=== PATIENT | female | born 1985 | race Caucasian/White ===

== ENCOUNTER 2017-01-22 14:00 | Emergency (ER) | payer MEDICAID ==
[~2017-01-22] VITALS: Ht 165.1 cm; Wt 94.0 kg
[~2017-01-22 14:00] MED LIST: IBUP-1542 PO; ONDA4TAB14 PO; TRAM50TA2 PO
[2017-01-22 14:03] VITALS: Ht 165.1 cm; Wt 94.0 kg
[2017-01-22] MEDS ORDERED: ONDANSETRON 4 MG INJ IV STA (14:44)
[2017-01-22] MEDS ORDERED: morphine 4 MG/ML VIAL IV STA (14:44)
--- NOTE | 2017-01-22 15:18 | RADRPT ---
PROCEDURE: US Abdomen (right upper quadrant). CLINICAL INDICATION: Right upper quadrant pain TECHNIQUE: Multiple real-time longitudinal and transverse images of the right upper quadrant of th e abdomen were acquired utilizing a curved array transducer. Images were reviewed on a high-resoluti on PACS workstation. COMPARISON: None FINDINGS: The liver is normal in size without focal mass or intrahepatic biliary dilatation. The gallbladder demonstrates numerous gallstones. There is no pericholecystic fluid or gallbladder wall thickening or gallstones. No intra or extrahepatic biliary dilatation is seen. The common bile duct measures 5 mm in maximal dimension. The visualized portions of the pancreas are unremarkable with obscuratio n of the tail of the pancreas. No free fluid is identified. The right kidney measures 11.3 cm in length. There is normal echogenicity within the right kidney. There is no perinephric fluid collection. No hydronephrosis, mass, or calculus is seen. IMPRESSION: 1. Cholelithiasis without evidence of gallbladder wall thickening or pericholecystic fluid to sugge st acute cholecystitis by ultrasound. 2. Otherwise grossly unremarkable abdominal ultrasound. RPTAT: UU .Yovany Jose MD, Date Time Electronically viewed and signed by .Yovany Jose MD, on 01/22/2017 15:18 .K/
[2017-01-22 15:27] LABS: ADD SCAN DIFF NO
[2017-01-22 15:29] LABS: BASOPHILS % 0.4 % (0.0-2.0); EOSINOPHILS # 0.3 10^3/ul (0.0-0.5); EOSINOPHILS % 2.6 % (0.0-7.0); HEMATOCRIT 43.3 % (37.0-47.0); HEMOGLOBIN 14.2 g/dl (12.0-16.0); LYMPHOCYTES # 2.7 10^3/ul (0.8-2.9); LYMPHOCYTES % 26.4 % (15.0-51.0); MEAN CORPUSCULAR HEMOGLOBIN 30.9 pg (29.0-33.0); MEAN CORPUSCULAR HGB CONC 32.8 g/dl (32.0-37.0); MEAN CORPUSCULAR VOLUME 94.1 fl (82.0-101.0); MEAN PLATELET VOLUME 10.2 fl (7.4-10.4); MONOCYTE # 0.8 10^3/ul (0.3-0.9); MONOCYTES % 8.1 % (0.0-11.0); NEUTROPHIL # 6.3 10^3/ul (1.6-7.5); NEUTROPHILS % 62.2 % (39.0-77.0); PLATELET COUNT 304 10^3/UL (140-415); RED CELL DISTRIBUTION WIDTH 12.3 % (11.5-14.5); WHITE BLOOD COUNT 10.2 10^3/ul (4.8-10.8)
[2017-01-22 15:32] LABS: ADD UMIC NO; URINE BILIRUBIN (Dip) NEGATIVE (NEGATIVE); URINE BLOOD (Dip) NEGATIVE (NEGATIVE); URINE COLOR LT. YELLOW (YELLOW); URINE GLUCOSE (Dip) NEGATIVE (NEGATIVE); URINE KETONES (Dip) NEGATIVE (NEGATIVE); URINE LEUKOCYTE ESTERASE (Dip) NEGATIVE (NEGATIVE); URINE NITRITE (Dip) NEGATIVE (NEGATIVE); URINE TOTAL PROTEIN (Dip) NEGATIVE (NEGATIVE); URINE UROBILINOGEN (Dip) 0.2 E.U./dL (0.1-1.0)
[2017-01-22 15:41] LABS: ALBUMIN 4.5 g/dl (3.3-4.9)
[2017-01-22 15:42] LABS: POTASSIUM 3.4 mmol/L (3.5-5.1)
[2017-01-22 15:44] LABS: ALBUMIN/GLOBULIN RATIO 1.32; BILIRUBIN,INDIRECT 0.2 mg/dl (0-1.1); BILIRUBIN,TOTAL 0.2 mg/dl (0.2-1.3); CREATININE 0.75 mg/dl (0.44-1.00); TOTAL PROTEIN 7.9 g/dl (6.1-8.1)
[2017-01-22 15:45] LABS: CALCIUM 9.6 mg/dl (8.4-10.2)
[2017-01-22] MEDS ORDERED: HYDR-906 PO (16:52)
[2017-01-22] MEDS ORDERED: IBUP-1542 PO (16:52)
[2017-01-22] MEDS ORDERED: ONDA8TAB14 PO (16:52)
--- NOTE | 2017-01-22 17:08 | ERD ---
ER Documentation Chief Complaint Date/Time DATE: 01/22/17 TIME: 17:06 Chief Complaint rt upper abd pain x 1 day HPI 31-year-old female presents with right upper quadrant abdominal pain for last day. She has nausea without vomiting and no history of fevers patient has urinary complaints. Patient gives a history of gallstones is on a waiting list for surgery is at another facility. Her last attack of biliary colic was approximately 6 months ago. ROS All systems reviewed and are negative except as per history of present illness. Medications Home Meds Active Scripts Ondansetron (Ondansetron Odt) 8 Mg Tab.rapdis, 8 MG PO Q6H Y for NAUSEA AND/OR VOMITING, #10 TAB Prov:KENNEDY HYDE MD 01/22/17 Ibuprofen* (Ibuprofen*) 600 Mg Tablet, 600 MG PO Q6, #20 TAB Prov:KENNEDY HYDE MD 01/22/17 Hydrocodone/Acetaminophen ([place] 5-325 Tablet) 1 Each Tablet, 1 EACH PO QID, # 16 TAB Prov:KENNEDY HYDE MD 01/22/17 Ibuprofen* (Motrin*) 600 Mg Tab, 600 MG PO Q6H Y for PAIN AND OR ELEVATED TEMP, #30 TAB Prov:MARIS ROBINS NP 11/03/16 Ondansetron (Ondansetron Odt) 4 Mg Tab.rapdis, 4 MG PO Q6H Y for NAUSEA AND/OR VOMITING, #10 TAB Prov:WILDER STEPHENS 09/06/16 Tramadol HCl (Tramadol HCl) 50 Mg Tablet, 50 MG PO Q4 Y for PAIN, #20 TAB Prov:WILDER STEPHENS 09/06/16 Allergies Allergies: Coded Allergies: No Known Allergy (Unverified , 09/06/16) PMhx/Soc History of Surgery: Yes (caesarean section x 1) Anesthesia Reaction: No Hx Neurological Disorder: No Hx Respiratory Disorders: No Hx Cardiac Disorders: No Hx Psychiatric Problems: No Hx Miscellaneous Medical Probl: Yes (gallstones) Hx Alcohol Use: No Hx Substance Use: No Hx Tobacco Use: No Physical Exam Vitals Vital Signs Date Time Temp Pulse Resp B/P Pulse Ox O2 Delivery O2 Flow Rate FiO2 01/22/17 14:03 98.3 88 18 105/66 99 Physical Exam Const: [] Head: Atraumatic Eyes: Normal Conjunctiva ENT: Normal External Ears, Nose and Mouth. Neck: Full range of motion..~ No meningismus. Resp: Clear to auscultation bilaterally Cardio: Regular rate and rhythm, no murmurs Abd: Soft, non tender, non distended. Normal bowel sounds Skin: No petechiae or rashes Back: No midline or flank tenderness Ext: No cyanosis, or edema Neur: Awake and alert Psych: Normal Mood and Affect Result Diagram: 01/22/17 1502 01/22/17 1502 Results 24 hrs Laboratory Tests Test 01/22/17 15:02 Alanine Aminotransferase (ALT/SGPT) 40IU/L Albumin 4.5g/dl Albumin/Globulin Ratio 1.32 Alkaline Phosphatase 91IU/L Anion Gap 16 Aspartate Amino Transf (AST/SGOT) 35IU/L Basophils # 0.010^3/ul Basophils % 0.4% Blood Urea Nitrogen 12mg/dl Calcium Level 9.6mg/dl Carbon Dioxide Level 30mmol/L Chloride Level 103mmol/L Creatinine 0.75mg/dl Direct Bilirubin 0.00mg/dl Eosinophils # 0.310^3/ul Eosinophils % 2.6% Globulin 3.40g/dl Glucose Level 64mg/dl Hematocrit 43.3% Hemoglobin 14.2g/dl Indirect Bilirubin 0.2mg/dl Lipase 61U/L Lymphocytes # 2.710^3/ul Lymphocytes % 26.4% Mean Corpuscular Hemoglobin 30.9pg Mean Corpuscular Hemoglobin Concent 32.8g/dl Mean Corpuscular Volume 94.1fl Mean Platelet Volume 10.2fl Monocytes # 0.810^3/ul Monocytes % 8.1% Neutrophils # 6.310^3/ul Neutrophils % 62.2% Nucleated Red Blood Cells # 0.010^3/ul Nucleated Red Blood Cells % 0.0/100WBC Platelet Count 60327^3/UL Potassium Level 3.4mmol/L Red Blood Count 4.6010^6/ul Red Cell Distribution Width 12.3% Sodium Level 146mmol/L Total Bilirubin 0.2mg/dl Total Protein 7.9g/dl Urine Bilirubin NEGATIVE Urine Clarity CLEAR Urine Color LT. YELLOW Urine Glucose NEGATIVE% Urine Hemoglobin NEGATIVE Urine Ketones NEGATIVE Urine Leukocyte Esterase NEGATIVE Urine Nitrite NEGATIVE Urine Specific [place] 1.015 Urine Total Protein NEGATIVE Urine Urobilinogen 0.2 E.U./dL Urine pH 6.5 White Blood Count 10.210^3/ul Current Medications Medications (Trade) Dose Ordered Sig/Chantal Route PRN Reason Start Time Stop Time Status Last Admin Dose Admin Morphine Sulfate (morphine) 4 mg ONCE STAT IV 01/22/17 14:44 01/22/17 14:45 DC 01/22/17 14:59 Ondansetron HCl (Zofran Inj) 4 mg ONCE STAT IV 01/22/17 14:44 01/22/17 14:45 DC 01/22/17 14:58 Procedures/MDM Patient presents with right upper quadrant abdominal pain in the setting of a history of gallstones. CBC and CMP showed no acute abnormalities. Urine is negative for significant abnormalities and hCG is negative. Lipase is normal Quadrant ultrasound shows gallstones without evidence of cholecystitis or biliary dilatation or obstruction. Patient was given morphine 4 mg IV and Zofran 4 mg IV. Patient felt better and had a benign abdomen on serial exam. Patient signs and symptoms of biliary colic without evidence of infection or obstruction. She will treated with short course of [place], Zofran and ibuprofen at home and instructed to continue follow-up with her primary doctor and surgeon for presumed cholecystectomy. She was advised to return for fevers, vomiting despite treatment, worsening pain, new or worsening symptoms with primary doctor. The patient was stable with no new complaints during the ER course. Clinically, there is no current evidence to suggest meningitis, sepsis, acute abdomen, pneumonia, acute coronary syndrome, pulmonary embolism, or any other emergent condition appearing to require further evaluation or hospitalization. The patient should certainly return for any new or worsening symptoms per the aftercare instructions. They should otherwise follow-up with her primary care doctor for reevaluation this week. Departure Diagnosis: Primary Impression: Biliary colic Condition: Stable Patient Instructions: Gallstones Additional Instructions: dolor es de piedras sin obstruccion o infeccion. Cheque otro vez con sethi doctor primario en el proximo weller or regresa para mas o nueva simptomas. KENNEDY HYDE MD Jan 22, 2017 17:07
== END 2017-01-22 17:07 | disposition left against medical advice (07) ==
LOC: FTE 14:00
DX: K80.50 Calculus of bile duct without cholangitis or cholecystitis without obstruction (principal); R11.0 Nausea
CPT/HCPCS: 36415; 76705; 80053; 81003; 83690; 85025; 96374; 96375; J2270; J2405; Z7502

== ENCOUNTER 2017-03-26 01:42 | Emergency (ER) | payer MEDICAID ==
[~2017-03-26] VITALS: Ht 162.6 cm; Wt 97.3 kg
[~2017-03-26 01:42] MED LIST changes: +HYDR-906 PO; +ONDA8TAB14 PO
[2017-03-26 01:51] VITALS: Ht 162.6 cm; Wt 97.3 kg
[2017-03-26] MEDS ORDERED: FAMOTIDINE 20 MG TAB PO STA (02:05)
--- NOTE | 2017-03-26 02:08 | ERD ---
ER Documentation Chief Complaint Date/Time DATE: 03/26/17 TIME: 02:06 Chief Complaint AP Right upper Quadrant. Hx of Gallstone, seen in ER multi visit HPI Patient is a 31-year-old female with known gallstones who presents with sudden onset, constant, moderate right upper quadrant pain for 4 hours. Pain radiates to the right flank. She denies vomiting, denies fever, denies dysuria or hematuria. She reports taking pain medication was prescribed to her without relief. She reports eating a low-fat diet. She has not yet seen a surgeon for her cholelithiasis. ROS All systems reviewed and are negative except as per history of present illness. Medications Home Meds Active Scripts Ondansetron (Ondansetron Odt) 8 Mg Tab.rapdis, 8 MG PO Q6H Y for NAUSEA AND/OR VOMITING, #10 TAB Prov:KENNEDY HYDE MD 01/22/17 Ibuprofen* (Ibuprofen*) 600 Mg Tablet, 600 MG PO Q6, #20 TAB Prov:KENNEDY HYDE MD 01/22/17 Hydrocodone/Acetaminophen ([place] 5-325 Tablet) 1 Each Tablet, 1 EACH PO QID, # 16 TAB Prov:KENNEDY HYDE MD 01/22/17 Ibuprofen* (Motrin*) 600 Mg Tab, 600 MG PO Q6H Y for PAIN AND OR ELEVATED TEMP, #30 TAB Prov:MARIS ROBINS NP 11/03/16 Ondansetron (Ondansetron Odt) 4 Mg Tab.rapdis, 4 MG PO Q6H Y for NAUSEA AND/OR VOMITING, #10 TAB Prov:WILDER STEPHENS 09/06/16 Tramadol HCl (Tramadol HCl) 50 Mg Tablet, 50 MG PO Q4 Y for PAIN, #20 TAB Prov:WILDER STEPHENS 09/06/16 Allergies Allergies: Coded Allergies: No Known Allergy (Unverified , 09/06/16) PMhx/Soc Past medical history: Cholelithiasis Past surgical history: Social history: Denies tobacco or alcohol Last menstrual period: March 17. History of Surgery: Yes (caesarean section x 1) Anesthesia Reaction: No Hx Neurological Disorder: No Hx Respiratory Disorders: No Hx Cardiac Disorders: No Hx Psychiatric Problems: No Hx Miscellaneous Medical Probl: Yes (gallstones) Hx Alcohol Use: No Hx Substance Use: No Hx Tobacco Use: No FmHx Family History: No coronary disease, No diabetes Physical Exam Vitals Vital Signs Date Time Temp Pulse Resp B/P Pulse Ox O2 Delivery O2 Flow Rate FiO2 03/26/17 01:51 97.3 87 20 121/71 96 Physical Exam Const: Alert, no acute distress Head: Atraumatic Eyes: Normal Conjunctiva, no pallor, no icterus ENT: Normal External Ears, Nose and Mouth. Neck: Full range of motion..~ No meningismus. Resp: Clear to auscultation bilaterally Cardio: Regular rate and rhythm, no murmurs Abd: Soft, mild tenderness in bilateral upper quadrants and epigastrium, no guarding, no rebound non distended. Normal bowel sounds Skin: No petechiae or rashes Back: No midline or flank tenderness Ext: No cyanosis, or edema Neur: Awake and alert, cranial nerves II through XII intact bilaterally, moves and feels 4 extremities appropriately Psych: Normal Mood and Affect Result Diagram: 03/26/17 02103/26/17 021 Results 24 hrs Laboratory Tests Test 03/26/17 02:10 White Blood Count 11.110^3/ul Red Blood Count 4.3610^6/ul Hemoglobin 13.6g/dl Hematocrit 39.9% Mean Corpuscular Volume 91.5fl Mean Corpuscular Hemoglobin 31.2pg Mean Corpuscular Hemoglobin Concent 34.1g/dl Red Cell Distribution Width 12.0% Platelet Count 02009^3/UL Mean Platelet Volume 10.4fl Neutrophils % 55.3% Lymphocytes % 34.2% Monocytes % 7.5% Eosinophils % 2.3% Basophils % 0.4% Nucleated Red Blood Cells % 0.0/100WBC Neutrophils # 6.110^3/ul Lymphocytes # 3.810^3/ul Monocytes # 0.810^3/ul Eosinophils # 0.310^3/ul Basophils # 0.010^3/ul Nucleated Red Blood Cells # 0.010^3/ul Urine Color LT. YELLOW Urine Clarity CLEAR Urine pH 6.0 Urine Specific [place] 1.025 Urine Ketones NEGATIVE Urine Nitrite NEGATIVE Urine Bilirubin NEGATIVE Urine Urobilinogen 0.2 E.U./dL Urine Leukocyte Esterase NEGATIVE Urine Hemoglobin NEGATIVE Urine Glucose NEGATIVE% Urine Total Protein NEGATIVE Sodium Level 142mmol/L Potassium Level 3.7mmol/L Chloride Level 103mmol/L Carbon Dioxide Level 25mmol/L Anion Gap 18 Blood Urea Nitrogen 18mg/dl Creatinine 0.87mg/dl Glucose Level 113mg/dl Calcium Level 9.5mg/dl Total Bilirubin 0.2mg/dl Direct Bilirubin 0.00mg/dl Indirect Bilirubin 0.2mg/dl Aspartate Amino Transf (AST/SGOT) 23IU/L Alanine Aminotransferase (ALT/SGPT) 36IU/L Alkaline Phosphatase 97IU/L Total Protein 8.0g/dl Albumin 4.4g/dl Globulin 3.60g/dl Albumin/Globulin Ratio 1.22 Lipase 88U/L Serum HCG, Qualitative NEGATIVE Current Medications Medications (Trade) Dose Ordered Sig/Chantal Route PRN Reason Start Time Stop Time Status Last Admin Dose Admin Famotidine (Pepcid) 20 mg ONCE STAT PO 03/26/17 02:05 03/26/17 02:07 DC 03/26/17 02:19 Tramadol HCl (Ultram) 50 mg ONCE ONCE PO 03/26/17 02:30 03/26/17 02:31 DC 03/26/17 02:19 Procedures/MDM MDM: Patient is a 31-year-old female who presents with right upper quadrant epigastric pain. She has history of recurrent pain due to cholelithiasis. The patient states that she has been seen her PMD for the last year for the symptoms , and that they have typically occurs 3 times per month. The patient states that her primary doctors refused to refer her to a surgeon. There is currently no evidence of cholecystitis or choledocholithiasis. Labs are unremarkable. Patient is not vomiting. Patient states that her pain is somewhat improved on reevaluation. I will discharge her home with return precautions, and advised her to request a surgical referral as she needs to have nonemergent cholecystectomy for her recurrent symptoms. Departure Diagnosis: Primary Impression: Cholelithiasis Cholelithiasis location: gallbladder Cholecystitis presence: without cholecystitis Biliary obstruction: without biliary obstruction Qualified Code : K80.20 - Calculus of gallbladder without cholecystitis without obstruction Additional Impression: Biliary colic Condition: Stable WALESKA UGALDE MD March 26, 2017 02:08
[2017-03-26 02:21] LABS: ADD SCAN DIFF NO
[2017-03-26 02:22] LABS: BASOPHILS % 0.4 % (0.0-2.0); EOSINOPHILS # 0.3 10^3/ul (0.0-0.5); EOSINOPHILS % 2.3 % (0.0-7.0); HEMATOCRIT 39.9 % (37.0-47.0); HEMOGLOBIN 13.6 g/dl (12.0-16.0); LYMPHOCYTES # 3.8 10^3/ul (0.8-2.9); LYMPHOCYTES % 34.2 % (15.0-51.0); MEAN CORPUSCULAR HEMOGLOBIN 31.2 pg (29.0-33.0); MEAN CORPUSCULAR HGB CONC 34.1 g/dl (32.0-37.0); MEAN CORPUSCULAR VOLUME 91.5 fl (82.0-101.0); MEAN PLATELET VOLUME 10.4 fl (7.4-10.4); MONOCYTE # 0.8 10^3/ul (0.3-0.9); MONOCYTES % 7.5 % (0.0-11.0); NEUTROPHIL # 6.1 10^3/ul (1.6-7.5); NEUTROPHILS % 55.3 % (39.0-77.0); PLATELET COUNT 282 10^3/UL (140-415); RED BLOOD COUNT 4.36 10^6/ul (4.20-5.40); WHITE BLOOD COUNT 11.1 10^3/ul (4.8-10.8)
[2017-03-26 02:26] LABS: ADD UMIC NO; URINE BILIRUBIN (Dip) NEGATIVE (NEGATIVE); URINE BLOOD (Dip) NEGATIVE (NEGATIVE); URINE COLOR LT. YELLOW (YELLOW); URINE GLUCOSE (Dip) NEGATIVE (NEGATIVE); URINE KETONES (Dip) NEGATIVE (NEGATIVE); URINE LEUKOCYTE ESTERASE (Dip) NEGATIVE (NEGATIVE); URINE NITRITE (Dip) NEGATIVE (NEGATIVE); URINE TOTAL PROTEIN (Dip) NEGATIVE (NEGATIVE); URINE UROBILINOGEN (Dip) 0.2 E.U./dL (0.1-1.0)
[2017-03-26] MEDS ORDERED: traMADol 50 MG TAB PO ONE (02:30)
[2017-03-26 02:43] LABS: ALBUMIN 4.4 g/dl (3.3-4.9); POTASSIUM 3.7 mmol/L (3.5-5.1)
[2017-03-26 02:45] LABS: BILIRUBIN,INDIRECT 0.2 mg/dl (0-1.1); BILIRUBIN,TOTAL 0.2 mg/dl (0.2-1.3); CREATININE 0.87 mg/dl (0.44-1.00)
[2017-03-26 02:46] LABS: ALBUMIN/GLOBULIN RATIO 1.22; CALCIUM 9.5 mg/dl (8.4-10.2)
--- NOTE | 2017-03-26 03:41 | RADRPT ---
PROCEDURE: ULTRASOUND LIMITED ABDOMEN CLINICAL INDICATION: 31-year-old female with abdominal pain. TECHNIQUE: Multiple sonographic of the right upper quadrant of the abdomen were obtained. The imag es were reviewed on a PACS workstation. COMPARISON: Right upper quadrant ultrasound January 22, 2017. FINDINGS: The pancreas is well visualized secondary to overlying bowel gas. The liver displays normal echogenicity. The liver measures 16.8 cm in length. No evidence of intrah epatic biliary ductal dilatation is seen. The portal and hepatic veins are unremarkable. The gallbladder is distended with multiple mobile shadowing stones. The gallbladder wall thickness is within normal limits measuring 1.5 mm. No pericholecystic fluid is seen. The common bile duct dionte sures 2.7 mm and is not dilated. The right kidney displays normal echogenicity. The right kidney measures 11.1 cm in maximal length. No caliectasis or hydronephrosis is seen. No free fluid is seen. IMPRESSION: Cholelithiasis. .Eriberto Macedo MD, MD Date Time Electronically viewed and signed by .Eriberto Macedo MD, on 03/26/2017 03:41 .M/
[2017-03-26 04:14] VITALS: BP 102/58; PULSE 78; RESP 18; TEMP 98
== END 2017-03-26 04:15 | disposition home or self-care (01) ==
LOC: E/R 01:42
DX: K80.70 Calculus of gallbladder and bile duct without cholecystitis without obstruction (principal)
CPT/HCPCS: 76705; 80053; 81003; 83690; 84703; 85025; Z7610; 36415

== ENCOUNTER 2017-04-27 16:37 | Emergency (ER) | payer MEDICAID ==
[~2017-04-27] VITALS: Ht 165.1 cm; Wt 90.0 kg
[2017-04-27 16:39] VITALS: Ht 165.1 cm; Wt 90.0 kg
--- NOTE | 2017-04-27 17:03 | ERD ---
ER Documentation Chief Complaint Date/Time DATE: 04/27/17 TIME: 17:01 Chief Complaint FLU, ST , BODY ACHES HPI 31-year-old female otherwise healthy comes emergency department sore throat, dizziness, body aches and cough for the past 1 day. She states that she had a fever yesterday that resolved. Pt states she has had lightheadedness, and fever yesterday. Denies hematuria. Patient reports that she also has had low back pain, worse with sitting. It is in the low back, radiating from the midline, going to the right lateral portion of the back. She denies saddle anesthesia loss of bowel bladder function. ROS All systems reviewed and are negative except as per history of present illness. Medications Home Meds Active Scripts Cephalexin* (Keflex*) 500 Mg Capsule, 500 MG PO TID for 5 Days, CAP Prov:ANGELA SEWELL PA-C 04/27/17 Ibuprofen* (Motrin*) 600 Mg Tab, 600 MG PO Q6, #30 TAB Prov:ANGELA SEWELL PA-C 04/27/17 Cetirizine Hcl* (Zyrtec*) 10 Mg Capsule, 10 MG PO DAILY, #30 TAB Prov:ANGELA SEWELL PA-C 04/27/17 Fluticasone Propionate* (Fluticasone Propionate* Nasal) 50 Mcg/[place] - 16 Gm [place].susp, 1 SPRAY NASAL BID, #1 BOTTLE TO EACH NOSTRIL Prov:ANGELA SEWELL PA-C 04/27/17 Ondansetron (Ondansetron Odt) 8 Mg Tab.rapdis, 8 MG PO Q6H Y for NAUSEA AND/OR VOMITING, #10 TAB Prov:KENNEDY HYDE MD 01/22/17 Ibuprofen* (Ibuprofen*) 600 Mg Tablet, 600 MG PO Q6, #20 TAB Prov:KENNEDY HYDE MD 01/22/17 Hydrocodone/Acetaminophen ([place] 5-325 Tablet) 1 Each Tablet, 1 EACH PO QID, # 16 TAB Prov:KENNEDY HYDE MD 01/22/17 Ibuprofen* (Motrin*) 600 Mg Tab, 600 MG PO Q6H Y for PAIN AND OR ELEVATED TEMP, #30 TAB Prov:MARIS ROBINS NP 11/03/16 Ondansetron (Ondansetron Odt) 4 Mg Tab.rapdis, 4 MG PO Q6H Y for NAUSEA AND/OR VOMITING, #10 TAB Prov:WILDER STEPHENS. 09/06/16 Tramadol HCl (Tramadol HCl) 50 Mg Tablet, 50 MG PO Q4 Y for PAIN, #20 TAB Prov:WILDER STEPHENS. 09/06/16 Allergies Allergies: Coded Allergies: No Known Allergy (Unverified , 09/06/16) PMhx/Soc History of Surgery: Yes (caesarean section x 1) Anesthesia Reaction: No Hx Neurological Disorder: No Hx Respiratory Disorders: No Hx Cardiac Disorders: No Hx Psychiatric Problems: No Hx Miscellaneous Medical Probl: Yes (gallstones) Hx Alcohol Use: No Hx Substance Use: No Hx Tobacco Use: No Physical Exam Vitals Vital Signs Date Time Temp Pulse Resp B/P Pulse Ox O2 Delivery O2 Flow Rate FiO2 04/27/17 16:39 98.1 82 18 117/56 99 Physical Exam General: Well-developed, well-nourished. The patient appears in no acute distress. HEENT: Head is normocephalic, atraumatic. No scleral icterus. Pupils are equal , round, and reactive. Oral mucous membranes are moist. Mild pharyngeal erythema, TMs are normal. Neck: Supple. Nontender. No lymphadenopathy. Lungs: Clear to auscultation. Normal air movement. Heart: Regular rate and rhythm. S1 and S2 are normal. No murmurs, gallops, or rubs. Abdomen: Soft, nontender, nondistended. Bowel sounds are normoactive. Back: No midline tenderness, no CVA tenderness. Strength lower extremities 5 out of 5 bilaterally. Extremities: No clubbing or cyanosis. Normal pulses. Moving extremities x 4. No weakness. Neurologic: Alert and oriented 3. No focal deficits. Skin: Normal turgor. No rash or lesions. Results 24 hrs Laboratory Tests Test 04/27/17 17:08 Bedside Urine pH (LAB) 5.5 Bedside Urine Protein (LAB) Negative Bedside Urine Glucose (UA) Negative Bedside Urine Ketones (LAB) Negative Bedside Urine Blood Negative Bedside Urine Nitrite (LAB) Negative Bedside Urine Leukocyte Esterase (L Trace Procedures/MDM The patient is a 31 yo female who comes in with a viral syndrome, oropharynx is erythematous, no exudate. She has dry cough, likely from postnasal drip, she states she only has cough and she has itching in the throat. Urine has trace leukocyte esterase, patient has had fever and dizziness, will be treated for urinary tract infection. The patient has a differential diagnosis of a viral upper respiratory infection, bacterial upper respiratory infection, bronchitis, pneumonia, pharyngitis, laryngitis, epiglottitis, croup, pneumonia. Patient has a normal pulmonary examination, clear breath sounds, normal pulse oximetry, with no corrective measures needed at this time. Fluids, rest, antipyretics were encouraged. Departure Diagnosis: Primary Impression: Sore throat Additional Impression: UTI (urinary tract infection) Condition: Good ANGELA SEWELL PA-C Apr 27, 2017 17:03
[2017-04-27] MEDS ORDERED: CETI10CA PO (17:04)
[2017-04-27] MEDS ORDERED: IBUP-1542 PO (17:04)
[2017-04-27] MEDS ORDERED: FLUT16SP17 NASAL (17:04)
[2017-04-27 17:05] LABS: URINE BLOOD (Dip) POC Negative (NEGATIVE)
[2017-04-27] MEDS ORDERED: CEPH-443 PO (17:10)
== END 2017-04-27 17:25 | disposition home or self-care (01) ==
LOC: FTE 16:37
DX: J02.9 Acute pharyngitis, unspecified (principal); N39.0 Urinary tract infection, site not specified
CPT/HCPCS: 81003; 99283

== ENCOUNTER 2017-07-12 11:08 | Day surgery (SDC) | payer MEDICAID, OTHER ==
[~2017-07-12] VITALS: Ht 165.1 cm; Wt 96.0 kg
[~2017-07-12 11:08] MED LIST changes: +CEFAZOLIN 2 GM/50 ML (PMX) 50 ML IVPB ONE; +CEPH-443 PO; +CETI10CA PO; +FLUT16SP17 NASAL; +LIDOCAINE 2% (SDV) 5 ML INJ ONE; +SEVOFLURANE 15 MIN ONE; +SOD CHLORIDE 0.9% 1,000 ML IV SCH
[2017-07-12 12:32] VITALS: BP 113/73; PULSE 78; RESP 20; Ht 165.1 cm; Wt 96.0 kg
[2017-07-12] MEDS ORDERED: ROCURONIUM 50 MG INJ ONE (13:23)
[2017-07-12] MEDS ORDERED: NEOSTIGMINE 3 MG/3 ML SYRINGE ONE (13:23)
[2017-07-12] MEDS ORDERED: PROPOFOL 20 ML ONE (13:23)
[2017-07-12] MEDS ORDERED: CEFAZOLIN 1 GM INJ ONE (13:23)
[2017-07-12] MEDS ORDERED: GLYCOPYRROLATE 0.4 MG INJ ONE (13:23)
[2017-07-12] MEDS ORDERED: DEXAMETHASONE 4 MG/ML 1 ML INJ ONE (13:24)
[2017-07-12] MEDS ORDERED: MIDAZOLAM 1 MG/ML 2 ML INJ ONE (13:24)
[2017-07-12] MEDS ORDERED: ONDANSETRON 4 MG INJ ONE (13:24)
[2017-07-12] MEDS ORDERED: FENTAnyl 50 MCG/ML VIAL ONE ×2 (13:24→13:50)
[2017-07-12] MEDS ORDERED: TRIMETHOBENZAMIDE 100 MG/ML VIAL IM PRN (14:00)
[2017-07-12] MEDS ORDERED: FENTAnyl 50 MCG/ML VIAL IV PRN ×3 (14:00)
[2017-07-12] MEDS ORDERED: LABETALOL HCL 20MG INJ IV PRN (14:00)
[2017-07-12] MEDS ORDERED: DIPHENHYDRAMINE 50 MG INJ IV PRN (14:00)
[2017-07-12] MEDS ORDERED: ONDANSETRON 4 MG INJ IV PRN (14:00)
[2017-07-12] MEDS ORDERED: OXYCODONE/ACETAMINOPHEN (5/325) TAB PO PRN ×2 (14:00)
[2017-07-12] MEDS ORDERED: MEPERIDINE 25 MG INJ IV PRN (14:00)
[2017-07-12] MEDS ORDERED: IPRATROPIUM (NEB) 0.5 MG/2.5 ML AMP HHN PRN (14:00)
[2017-07-12] MEDS ORDERED: hydrALAzine 20 MG INJ IV PRN (14:00)
[2017-07-12] MEDS ORDERED: HYDROmorphONE (0.2 MG/ML) 10ML SYG IV PRN ×3 (14:00)
[2017-07-12] MEDS ORDERED: ALBUTEROL 0.083% (NEB) 2.5 MG/3 ML AMP HHN PRN (14:00)
[2017-07-12] MEDS ORDERED: EPHEDrine SULFATE 50 MG/5 ML SYG IV PRN (14:00)
[2017-07-12] MEDS ORDERED: MIDAZOLAM 1 MG/ML 2 ML INJ IV PRN (14:00)
[2017-07-12] MEDS ORDERED: SUGAMMADEX SODIUM 200 MG/2 ML VIAL IV ONE (14:02)
[2017-07-12] MEDS ORDERED: BUPIVACAINE 0.25% (MPF) 30 ML INJ ONE (14:03)
[2017-07-12] MEDS ORDERED: KETOROLAC 30 MG INJ ONE (14:10)
--- NOTE | 2017-07-12 14:11 | OPR ---
Date/Time of Note Date/Time of Note DATE: 07/12/17 TIME: 14:08 Operative Report Procedure Date: Jul 12, 2017 Preoperative Diagnosis symptomatic gallstones Postoperative Diagnosis same Operation Performed 1. laparoscopic cholecystectomy 2. therapeutic injection of subcutaneous marcaine Surgeon: Jasmin MCKEON Anesthesia Type: general Estimated Blood Loss: 0 - 10 ml's Specimens gallbladder Grafts/Implants: none Complications: no Indications This is a 32-year-old female with subsided gallstones. She required surgical excision. Risks alternatives benefits and percent were discussed the patient. Patient expresses understanding and consents to the operation. Procedure Description Patient taken to the OR and prepped and draped in usual sterile fashion. Surgical timeout was performed. IV antibiotics are given. Infra umbilical transverse incision is made with a 15 blade. Dissection cautery was carried down to the fascia. The fascia was grasped with Hico's and divided with curved Morrison scissors. 0 Vicryl U stitches placed into the fascia. Balloon Ying trocar is introduced. Pneumoperitoneum is established. Midepigastric 12 mm optical trocar was placed under direct visualization. Right upper quadrant right upper flank 5 mm optical trochars are placed under direct visualization. Upon initial inspection the gallbladder was grasped and retracted in a lateral and outward direction. Lateral dissection was first initiated with cautery. The cystic duct was identified the critical view was established the cystic duct and cystic artery were divided with a single load of 35 mm echelon vascular stapler. Additional clips were placed for reinforcement. The gallbladder was taken of the gallbladder bed. There is good hemostasis. Middle suction irrigation was used. The gallbladder was retrieved using an Endo Catch bag. Ports removed under direct visualization. 0 Vicryl U stitch was tied down. Skin was closed using skin erna. Therapeutic subcutaneous injection of all port sites were performed with marcaine. Dry dressings were applied to all incision sites. Jasmin MCKEON Jul 12, 2017 14:11
[2017-07-12] MEDS ORDERED: HYDROCODONE/APAP (5/325) TAB PO ONE (14:30)
[2017-07-12 14:34] VITALS: BP 129/78; PULSE 76; RESP 16
[2017-07-12 14:39] VITALS: BP 128/79; PULSE 72; RESP 11
[2017-07-12 14:44] VITALS: BP 132/82; PULSE 72; RESP 12
[2017-07-12 14:49] VITALS: BP 130/75; PULSE 72; RESP 16
[2017-07-12 16:58] VITALS: BP 132/85; PULSE 89; RESP 18
== END 2017-07-12 16:32 | disposition home or self-care (01) ==
LOC: SDS 11:08
PROVIDERS: ATTEND Surgery
DX: K80.10 Calculus of gallbladder with chronic cholecystitis without obstruction (principal)
CPT/HCPCS: 47562; 88304; J0690; J1100; J1885; J2175; J2250; J2405; J2710; J3010; Z7512; Z7610

== ENCOUNTER 2018-02-23 14:48 | Emergency (ER) | END 2018-02-23 19:05 | disposition home or self-care (01) ==

== ENCOUNTER 2018-03-22 15:01 | Emergency (ER) | END 2018-03-22 17:12 | disposition home or self-care (01) ==

== ENCOUNTER 2018-12-13 08:40 | Emergency (ER) | payer OTHER ==
[~2018-12-13] VITALS: Ht 162.6 cm; Wt 96.1 kg
[~2018-12-13 08:40] MED LIST changes: -CEFAZOLIN 2 GM/50 ML (PMX) 50 ML IVPB ONE; -CEPH-443 PO; -CETI10CA PO; +CYCL10TA7 PO; -FLUT16SP17 NASAL; -HYDR-906 PO; -IBUP-1542 PO; -LIDOCAINE 2% (SDV) 5 ML INJ ONE; +NAPR-985 PO; -ONDA4TAB14 PO; -ONDA8TAB14 PO; -SEVOFLURANE 15 MIN ONE; -SOD CHLORIDE 0.9% 1,000 ML IV SCH
[2018-12-13 08:44] VITALS: BP 113/68; PULSE 88; RESP 18; Ht 162.6 cm; Wt 96.1 kg
[2018-12-13] MEDS ORDERED: AZIT250T PO (09:14)
[2018-12-13] MEDS ORDERED: ALBU18HF INHALATION (09:14)
[2018-12-13] MEDS ORDERED: BENZ-6 PO (09:14)
--- NOTE | 2018-12-13 10:31 | ERD ---
ER Documentation Chief Complaint Chief Complaint cough , fever on and off x 3 weeks HPI 33-year-old female patient with no significant past medical history presents to ED complaining of cough that started 3 weeks ago. Patient describes as dry. Patient reports that she has been taking Robitussin without any relief. Denies any chest pain, shortness of breath, nausea, vomiting, diarrhea, neck stiffness. Patient's son also have similar symptoms. ROS All systems reviewed and are negative except as per history of present illness. Medications Home Meds Active Scripts Azithromycin* (Zithromax*) 250 Mg Tablet, 250 MG PO .ZPACK DIRECTED, #6 TAB TAKE 500 MG (2 TABS) THE FIRST DAY THEN 250 MG (1 TAB) DAYS 2-5 Prov:KALI WAGONER PA-C 12/13/18 Albuterol Sulfate* (Ventolin HFA*) 18 Gm Hfa.aer.ad, 2 PUFF INHALATION Q4H, #1 INHALER Prov:KALI WAGONER PA-C 12/13/18 Benzonatate* (Tessalon Perle*) 100 Mg Capsule, 100 MG PO Q8H PRN for COUGH, #20 CAP Prov:KALI WAGONER PA-C 12/13/18 Cyclobenzaprine Hcl* (Cyclobenzaprine Hcl*) 10 Mg Tablet, 10 MG PO QHS, #7 TAB Prov:VANDANA LEC 03/22/18 Naproxen* (Naprosyn*) 500 Mg Tablet, 500 MG PO BID PRN for PAIN AND/OR INFLAMMATION, #30 TAB Prov:VANDANA LEC 03/22/18 Tramadol HCl (Tramadol HCl) 50 Mg Tablet, 50 MG PO Q4 PRN for PAIN, #20 TAB Prov:VANDANA LEC 03/22/18 Naproxen* (Naprosyn*) 500 Mg Tablet, 500 MG PO BID PRN for PAIN AND/OR INFLAMMATION, #30 TAB Prov:GINNY PRINCEC 02/23/18 Allergies Allergies: Coded Allergies: No Known Allergy (Unverified , 12/13/18) PMhx/Soc History of Surgery: Yes ([facility] 2013, cholecystectomy) Anesthesia Reaction: No Hx Neurological Disorder: No Hx Respiratory Disorders: No Hx Cardiac Disorders: No Hx Psychiatric Problems: No Hx Miscellaneous Medical Probl: No Hx Alcohol Use: No Hx Substance Use: No Hx Tobacco Use: No FmHx Family History: No diabetes, No coronary disease Physical Exam Vitals Vital Signs Date Temp Pulse Resp B/P (MAP) Pulse Ox O2 O2 Flow FiO2 Time Delivery Rate 12/13/18 97.3 88 18 113/68 99 08:44 (83) Physical Exam Const: Ctd-lub-epvarmcta, well-nourished. In no acute distress. Head: Atraumatic, normocephalic Eyes: Normal Conjunctiva without injection. No purulent discharge. PERRL. EOMI ENT: Normal external ear. Ear canal without erythema. Tympanic membrane pearly blanc without effusion or bulging. Nasal canal clear with normal turbinates. Moist oropharynx without tonsillar exudates. Non-erythematous pharynx. Uvula midline. No drooling. No trismus. Neck: Full range of motion. No meningismus. No cervical lymphadenopathy. Resp: Clear to auscultation bilaterally. No wheezing, rhonchi, rales, or crackles. No accessory muscle use. No retractions. Cardio: Regular rate and rhythm. No murmurs, rubs or gallops. Abd: Soft, non tender, non distended. Normal bowel sounds. No palpable masses. No rebound tenderness. No guarding. Skin: No petechiae or rashes Back: No midline tenderness. No CVA tenderness. Ext: No cyanosis, or edema. Neur: Awake and alert. Psych: Normal Mood and Affect Procedures/MDM 33-year-old female patient with no significant past medical history presents to ED complaining of cough, fever intimately that started 3 weeks ago. Patient is afebrile and nontoxic-appearing. This patient presents to the ED with symptoms consistent with probable bronchitis. Patient will be treated for a bacterial etiology. Patient's physical exam include lungs which were clear to aus cultation and a normal pulse oximetry. There is a low suspicion for pneumonia, pneumothorax, mononucleosis, pulmonary embolism, epiglottitis, otitis media, otitis externa, viral/strep pharyngitis, sinusitis, myocarditis, pericarditis, endocarditis, peritonsillar abscess, mastoiditis, retropharyngeal abscess, meningitis, sepsis, acute abdomen or other emergent conditions. Fluids, rest, and symptomatic treatment are recommended for the management of patient's symptoms. Diagnosis: Cough Discharge medications: Tessalon Perles, Ventolin, Zithromax Follow up with primary care physician in 1-2 days. Instructed patient to return to the ED sooner for any worsening symptoms. Patient's questions were answered. Patient is hemodynamically stable. Patient understood and agreed with discharge plan. Patient discharged stable. Disclaimer: Inadvertent spelling and grammatical errors are likely due to EHR/dictation software use and do not reflect on the overall quality of patient care. Also, please note that the electronic time recorded on this note does not necessarily reflect the actual time of the patient encounter. Departure Diagnosis: Primary Impression: Cough Condition: Stable Patient Instructions: Bronchitis, Antiobiotic Treatment (Adult) [facility] Usted se turner hecho un examen mdico de control que le indica que no est en vicky condicin que requiera tratamiento urgente en el Departamento de Emergencia. Un estudio ms profundo y el tratamiento de sethi condicin pueden esperar sin ningn riesgo hasta que usted sea atendida/o en el consultorio de sethi mdico o vicky clnica. Es responsabilidad suya arreglar vicky michelle para el seguimiento del eddie. MANEJO DE CONDICIONES NO URGENTES EN EL FUTURO 1) Si usted tiene un mdico de atencin primaria: Usted debera llamar a sethi mdico de atencin primaria antes de venir al departamento de emergencia. Despus de las horas de consultorio, sethi doctor o sethi asociado/a est disponible por telfono. El mdico o enfermero de francisco j en el servicio telefnico puede asesorarle por elmira medio para atender el problema, o eddie contrario se puede programar vicky michelle. 2) Si usted no tiene un mdico de atencin primaria: Llame al mdico o clnica de referencia que aparece abajo luis daniel las horas de consultorio para hacer vicky michelle para que le vean. CLINICAS: [facility] [phone] [facility] [phone] [facility] [phone] [facility] [phone] [place] [id number] [phone] [facility] [phone] [facility]. [facility] () Usted se turner hecho un examen mdico de control que le indica que no est en vicky condicin que requiera tratamiento urgente en el Departamento de Emergencia. Un estudio ms profundo y el tratamiento de sethi condicin pueden esperar sin ningn riesgo hasta que usted sea atendida/o en el consultorio de sethi mdico o vicky clnica. Es responsabilidad suya arreglar vicky michelle para el seguimiento del eddie. MANEJO DE CONDICIONES NO URGENTES EN EL FUTURO 1) Si usted tiene un mdico de atencin primaria: Usted debera llamar a sethi mdico de atencin primaria antes de venir al departamento de emergencia. Despus de las horas de consultorio, sethi doctor o sethi asociado/a est disponible por telfono. El mdico o enfermero de francisco j en el servicio telefnico puede asesorarle por elmira medio para atender el problema, o eddie contrario se puede programar vicky michelle. 2) Si usted no tiene un mdico de atencin primaria: Llame al mdico o condado institucions de referencia que aparece abajo luis daniel las horas de consultorio para hacer vicky michelle para que le vean. SI USTED NO PUEDE PAGAR PARA AJAY UN MEDICO puede ir a: [facility] [id number] [place] [address] [facility] [address] [place] [address] [facility] [address] [place] [address] [facility] [address] [place], [place] [id number] Additional Instructions: Llame al doctor MAANA y abhijit vicky MICHELLE PARA DENTRO DE 2-3 EASTMAN.Dgale a la secretaria que nosotros le instruimos hacer esta michelle.Avise o llame si sethi condicin se empeora antes de la michelle. Regresa aqui si peor o no mejor. KALI WAGONER PA-C Dec 13, 2018 10:31
== END 2018-12-13 09:37 | disposition home or self-care (01) ==
LOC: FTE 08:40
DX: R05 Cough (principal)
CPT/HCPCS: 99283